=== PATIENT | female | born 1995 | race Two or more races ===

== ENCOUNTER 2022-06-20 15:23 | Emergency (ER) | payer OTHER, SELFPAY ==
--- NOTE | 2022-06-20 15:29 | ED.GENADULT ---
HPI - General Adult General Chief complaint: Asthma Stated complaint: SOB/Asthma Time Seen by Provider: 06/20/22 15:36 Source: patient, RN notes reviewed and old records reviewed Mode of arrival: ambulatory Limitations: no limitations History of Present Illness HPI narrative: 26-year-old female presents to the [facility] with shortness of breath and wheezing for about a week. States she has not had her inhaler for while. Denies any chest pain. Denies fevers or any other symptoms. Onset (ago): week(s) (1) Related Data Home Medications Medication Instructions Recorded Confirmed medroxyprogesterone 150 mg/mL mg IM 06/20/22 intramuscular syringe Allergies Allergy/AdvReac Type Severity Reaction Status Date / Time levonorgestrel-ethinyl Allergy Mild Unknown Verified 06/20/22 15:36 estradiol Review of Systems Review of Systems: All systems reviewed & are unremarkable except as noted in HPI and below Constitutional: Constitutional: Reports no additional constitutional complaints Eyes: Eyes: Reports no additional eye complaints ENT: Reports system reviewed and no additional complaints, except as documented Cardiovascular: Cardiovascular: Reports no additional cardiovascular complaints, Denies chest pain and Denies dyspnea Respiratory: Respiratory: Reports as per HPI, Denies chest congestion, Reports cough, Denies dyspnea and Reports wheezing Gastrointestinal: Gastrointestinal: Reports no additional gastrointestinal complaints, Denies abdominal pain, Denies nausea and Denies vomiting Musculoskeletal: Musculoskeletal: Reports no additional musculoskeletal complaints Integumentary/Breasts: Skin/Breast: Reports system reviewed and no additional complaints, except as docu Neurologic: Reports system reviewed and no additional complaints, except as documented Psychiatric: Psychiatric: Reports no additional psychiatric complaints Allergic/Immunologic: Allergic/Immunologic: Reports no additional allergic/immunologic complaints PMFSH Past Medical History Medical History (Updated 06/21/22 @ 17:11 by Sally Liu, ANGELA) Asthma Comments At the time of my signature, I reviewed and agree with the nursing past medical, surgical, social, and family history. There is no relevant family history pertinent to the patient complaint. Exam Const: General: cooperative, healthy appearing, comfortable, no acute distress, well developed, alert and well nourished Nutritional Appearance: well nourished Orientation/consciousness: patient oriented x3 Limitations: no limitations HENMT: Head: normal to inspection Ears: hearing grossly normal bilaterally and external ears normal Face/Nose/Sinus: Normal external nose present, Normal nares present, Normal nasal mucous membranes and turbinates present and normal facial exam Face and sinus: normal facial exam Mouth: Yes Normal oral and palatal mucosa present, Yes lip normal and Yes moist mucous membranes Eyes: General: appearance normal, both eyes and all related structures Alignment and Position: alignment normal Periorbital: periorbital findings normal Conjunctivae: conjunctivae normal Pupils: Equal, round and reactive pupils present EOM: EOMs intact bilaterally Neck: Neck: normal visual inspection, full ROM, no lymphadenopathy and no meningeal signs Chest: Chest palpation & inspection: normal inspection of the chest Resp: Effort & Inspection: normal respiratory effort and able to speak in complete sentences Auscultation: clear to auscultation bilaterally, no crackles, no rales, no rhonchi and wheezes expiratory wheezes, inspiratory wheezes and right lower Cardio: Rate: regular rate Rhythm: regular rhythm Back/Spine/Pelvis: Cervical Spine: cervical ROM normal Thoracic/Lumbar Spine: No thoracic spinal tenderness Skin: General skin exam: normal color and no rashes or lesions noted Lesions: no lesions Rashes: no rashes Wounds: no wounds Neuro: General: patient orien
[2022-06-20 15:35] VITALS: BP 146/93; PULSE 75; RESP 16; TEMP 36.5; O2SAT 97
[2022-06-20 15:36] VITALS: BP 146/93; PULSE 75; RESP 16; TEMP 36.5; O2SAT 97
== END 2022-06-20 16:00 | disposition home or self-care (01) ==
PROVIDERS: Emergency Provider Nurse Practitioner; PCP Internal Medicine
DX: J45.909 Unspecified asthma, uncomplicated (principal)
CPT/HCPCS: 99213; G0463

== ENCOUNTER 2022-12-05 17:54 | Emergency (ER) | payer OTHER, SELFPAY ==
[2022-12-05 18:08] VITALS: BP 151/92; PULSE 65; RESP 16; TEMP 36.7; O2SAT 97
--- NOTE | 2022-12-05 18:35 | ED.EAR ---
HPI - Ear Problem General Chief complaint: Ear Stated complaint: Left Ear Irritation History of Present Illness HPI Narrative: Pt is a 27 y/o female, presents to with 5 day hx of URI symptoms followed by left ear pain and muffled hearing without associated cough, fevers, otorrhea or trauma. She has taken OTC cold medications without relief. She denies any other associated symptoms or modifying factors. She is not . Related Data Home Medications Medication Instructions Recorded Confirmed medroxyprogesterone 150 mg/mL 150 mg IM DIRECTED 06/20/22 12/05/22 intramuscular syringe Allergies Allergy/AdvReac Type Severity Reaction Status Date / Time levonorgestrel-ethinyl Allergy Mild Unknown Verified 12/05/22 18:03 estradiol Review of Systems ENT: Reports system reviewed and no additional complaints, except as documented and Reports as per [facility] Past Medical History Medical History Asthma Exam Const: General: healthy appearing, no acute distress and alert Nutritional Appearance: well nourished Orientation/consciousness: patient oriented x3 Limitations: no limitations HENMT: Head: normal to inspection Ears: TM abnormal bulging on the left, erythematous on the left, with fluid behind the TM (purulent fluid effusion on left, serous effusion on right) and with loss of landmarks (left TM bony land travis loss) on the left Face and sinus: normal facial exam and sinus tenderness maxillary Mouth: Yes Normal oral and palatal mucosa present, Yes lip normal and Yes moist mucous membranes Other: TM's intact bilaterally Eyes: Conjunctivae: conjunctivae normal Pupils: Equal, round and reactive pupils present EOM: EOMs intact bilaterally Neck: Neck: normal visual inspection, no lymphadenopathy and no meningeal signs Chest: Chest palpation & inspection: normal inspection of the chest Resp: Effort & Inspection: normal respiratory effort Auscultation: clear to auscultation bilaterally Cardio: Rate: regular rate Rhythm: regular rhythm Back/Spine/Pelvis: Back: no CVA tenderness Skin: General skin exam: normal color Rashes: no rashes Wounds: no wounds Neuro: General: patient oriented x3, moves all extremities, no meningeal signs, no focal motor deficits and CN's II-XI intact bilaterally Cranial nerves: Yes Nystagmus not present Speech: normal speech Gait exam (Neuro): Normal gait present Extrem: General: normal to inspection Course Course Emergency Course: plan to treat for left AOM, sinusitis, FU with PCP stressed in 3 days if symptoms are not improving. Pt is agreeable with plan of care. Level of Care: Express Care Visit ([id number]) Vital Signs Vital signs: Vital Signs Temperature 36.7 C 12/05/22 18:08 Pulse Rate 65 12/05/22 18:08 Respiratory Rate 16 12/05/22 18:08 Blood Pressure 151/92 H 12/05/22 18:08 Pulse Oximetry 97 12/05/22 18:08 Oxygen Delivery Room Air 12/05/22 18:08 Temperature 36.7 C 12/05/22 18:08 Pulse Rate 65 12/05/22 18:08 Respiratory Rate 16 12/05/22 18:08 Blood Pressure 151/92 H 12/05/22 18:08 Pulse Oximetry 97 12/05/22 18:08 Oxygen Delivery Room Air 12/05/22 18:08 Medical Decision Making MDM Narrative Medical decision making narrative: Augmentin, OTC Flonase, Zyrtec, Sudafed as directed, FU with PCP in 3 days if symptoms are not improving. Differential Diagnosis Differential Diagnosis: AOM, OTE, serous OM, sinusitis Vital Signs Vital Signs: Vital Signs Temperature 36.7 C 12/05/22 18:08 Pulse Rate 65 12/05/22 18:08 Respiratory Rate 16 12/05/22 18:08 Blood Pressure 151/92 H 12/05/22 18:08 Pulse Oximetry 97 12/05/22 18:08 Oxygen Delivery Room Air 12/05/22 18:08 Temperature 36.7 C 12/05/22 18:08 Pulse Rate 65 12/05/22 18:08 Respiratory Rate 16 12/05/22 18:08 Blood Pressure 151/92 H 12/05/22 18:08 Pulse Oximetry 97
== END 2022-12-05 18:45 | disposition home or self-care (01) ==
PROVIDERS: Emergency Provider Nurse Practitioner Family; PCP Internal Medicine
DX: H66.002 Acute suppurative otitis media without spontaneous rupture of ear drum, left ear (principal); J01.00 Acute maxillary sinusitis, unspecified
CPT/HCPCS: 99213; G0463

== ENCOUNTER 2024-06-24 18:18 | Emergency (ER) | payer BC, SELFPAY ==
--- NOTE | ~2024-06-24 | XR_ITS ---
CHEST RADIOGRAPH, PA AND LATERAL CLINICAL HISTORY: wheezing and cough, sob . COMPARISON: None available TECHNIQUE: PA and lateral views of the chest. FINDINGS The cardiomediastinal silhouette is unremarkable. The lungs are clear. Visualized osseous structures and soft tissues are unremarkable. IMPRESSION: No focal infiltrate or effusion. Reviewed, dictated and finalized at location A.
[2024-06-24 18:26] VITALS: BP 147/81; PULSE 72; RESP 18; TEMP 36.8; O2SAT 98
[2024-06-24] MEDS: IPRATROPIUM 0.5 MG/ALBUTEROL SULFATE 2.5 MG AMPUL.NEB 3 ML INHALATION (18:52)
--- NOTE | 2024-06-24 18:52 | ED.URI ---
HPI - URI/Sore Throat General Chief Complaint: Upper Respiratory Infection Stated Complaint: Cough/SOB Time Seen by Provider: 06/24/24 18:45 Source: patient and RN notes reviewed Mode of arrival: ambulatory Limitations: no limitations History of Present Illness HPI Narrative: 28-year-old female presents Express Care complaining of cough and shortness of breath for approximately 6 days. Patient reported a dry hacking cough reports shortness breath with exertion. Patient also reports she feels ?wheezy? at times. Patient says she normally gets bronchitis around this time. Patient said she might have had a history of asthma but currently is not on any treatment or has a rescue inhaler at home. Patient denies any fevers, sore throat, congestion, ear pain, chest pain, body aches, chills. Patient denies coughing up any sputum. Patient says she was a former E cigarette vaper and quit back in March of this year. Patient is on control with an IUD which is progesterone based. Related Data Home Medications ?Medication ?Instructions ?Recorded ?Confirmed ?Last Taken ?Type sertraline 50 mg tablet 50 mg PO DAILY 11/20/23 03/11/24 Unknown History levonorgestrel 17.5 mcg/24 hr (up 1 device intrauterine ONCE 03/11/24 03/11/24 Unknown History to 5 yrs) 19.5mg intrauterine device (Kyleena) acetazolamide 500 mg mg PO 06/24/24 Unknown History capsule,extended release Allergies Allergy/AdvReac Type Severity Reaction Status Date / Time No Known Allergies Allergy Verified 06/24/24 18:21 Review of Systems Review of Systems: CONSTITUTIONAL: Denies fever, chills, or sweats. EYES: Denies visual changes, redness, or discharge. ENT: Denies rhinorrhea, congestion, sore throat, or otalgia. CARDIOVASCULAR: Denies chest pain, palpitations, dizziness, lightheadedness, syncope, or edema. RESPIRATORY: Positive for cough, wheezing, dyspnea with exertion. GASTROINTESTINAL: Denies abdominal pain, nausea, vomiting, or diarrhea. GENITOURINARY: Denies dysuria or hematuria. SKIN: Denies rash or itching. MUSCULOSKELETAL: Denies back pain, joint pain, or myalgia. NEUROLOGIC: Denies headache, numbness, or weakness. PSYCHIATRIC: Denies anxiety or depression. All other systems reviewed are negative, except as documented in HPI. [facility] Past Medical History Medical History Asthma Family History Family History Sibling Diabetes mellitus Grandparent Diabetes mellitus Father Hypertension Social History Social History Smoking status: Never smoker Alcohol intake: never Substance use: never Comments At the time of my signature, I reviewed and agree with the nursing past medical, surgical, social, and family history. There is no relevant family history pertinent to the patient complaint. Exam Narrative: GENERAL: This is a well-nourished, well-developed adult, in no apparent distress. They are non ill-appearing, nontoxic appearing. HEAD: normocephalic, atraumatic. EYES: Sclera clear/white. Conjunctivae normal bilaterally. Vision is grossly intact. Extraocular movements intact EARS: External ears normal, auditory canals clear and without drainage, TMs normal without perforation. Hearing grossly intact. NOSE: External nose normal with no obvious nasal discharge, nares without redness, no rhinorrhea. THROAT: Mucous membranes moist, posterior pharynx clear. NECK: Neck supple, non-tender without lymphadenopathy, masses or thyromegaly. CARDIOVASCULAR: Regular rate and rhythm without murmurs, gallops, or rubs. RESPIRATORY: Inspiratory wheezing heard throughout the lungs bilaterally. Respiratory efforts nonlabored, no tachypnea, no accessory muscle use, no retractions. Apparent respiratory distress. Patient is able to speak in full sentences. SKIN: warm, Dry, intact with no suspicious lesions or rash, good texture and turgor. NEURO: awake, alert, and oriented to person, place and time. There were no obvious focal neurologic abnormalities. EXTREMITIES: No joint tenderness, effusion, or edema noted. Course Course Emergency Course: After receiving DuoNeb treatment, patient's symptoms and wheezing significantly improved. Minimal upper airway wheezing upon auscultation. Improved aeration throughout the lungs. Patient no longer feels short of breath. Portions of this record may have been created with voice recognition software Level of Care: Express Care Visit Vital Signs Vital signs: Vital Signs Temperature 98.3 F 06/24/24 18:26 Pulse Rate 72 06/24/24 18:26 Respiratory Rate 18 06/24/24 18:26 Blood Pressure 147/81 H 06/24/24 18:26 Pulse Oximetry 98 06/24/24 18:26 Oxygen Delivery Room Air 06/24/24 18:26 Temperature 98.3 F 06/24/24 18:26 Pulse Rate 72 06/24/24 18:26 Respiratory Rate 18 06/24/24 18:26 Blood Pressure 147/81 H 06/24/24 18:26 Pulse Oximetry 98 06/24/24 18:26 Oxygen Delivery Room Air 06/24/24 18:26 Reviewed MDM - URI/Sore Throat MDM Narrative Medical decision making narrative: Chest x-ray negative for any acute findings. Flu and COVID swabs were negative. Patient's wheezing significantly improved with DuoNeb. Patient no longer feels short of breath or wheezy. Minimal wheezing heard on auscultation post DuoNeb treatment with improved aeration throughout lungs. Patient is in no apparent respiratory distress, she is able to speak in full sentences. Patient was given a dose of Solu-Medrol prior to discharge. I will prescribe her prednisone and albuterol for her symptoms. She does not have a nebulizer at home. It is likely that the patient had an asthma exacerbation. She has had a history of asthma has no longer been on treatment. Recommend close follow-up with PCP. Anticipatory guidance given. Strict ED return precautions discussed. Patient is stable for outpatient follow-up. Differential Diagnosis Differential diagnosis: Likely bronchitis and other (Asthma exacerbation, pneumonia) Lab Data Attestation: I reviewed the patient's lab results. Labs: Lab Results 06/24/24 Range/Units 18:30 POC Influenza A Ag Negative (Negative) POC Influenza B Ag Negative (Negative) POC SARS CoV-2 Ag Negative (Negative) Imaging Data Radiologist's impression: ITS Impressions Chest X-Ray 06/24/24 19:14 IMPRESSION: No focal infiltrate or effusion. Critical Care Time Critical Care Time Critical Care Time: No Discharge Plan Discharge Clinical Impression: Asthma Qualifiers: Asthma severity: moderate Asthma persistence: unspecified Asthma complication type: with acute exacerbation Qualified Code(s): J45.901 - Unspecified asthma with (acute) exacerbation Patient Disposition: Home Condition: Stable Instructions: Asthma (ED) Additional Instructions: Your COVID and flu were negative. Your chest x-ray was clear without any evidence of pneumonia or any other findings. Your given a nebulizer treatment today along with a steroid shot. Please take the prednisone at home as directed. Please take a morning with food. Please use the rescue inhaler as needed for any shortness of breath or wheezing. Please follow-up with your primary care provider for further evaluation and management of her asthma symptoms. If he develops worsening shortness of breath, wheezing, unable to speak in full sentences, no relief after use inhaler, or any other concerns please go to the ER immediately. Patient Language: Welsh Prescriptions: New prednisone 20 mg tablet 40 mg PO DAILY 5 Days Qty: 10 0RF albuterol sulfate [Ventolin HFA] 90 mcg/actuation HFA aerosol inhaler 2 puff inhalation QID Qty: 8.5 1RF No Action acetazolamide 500 mg capsule, extended release PO sertraline 50 mg tablet 50 mg PO DAILY Kyleena 17.5 mcg/24 hr (5 yrs) 19.5 mg intrauterine device 1 device intrauterine ONCE Rx Instructions: as a single dose Follow-up/Referrals: Mando,Chasity Meyers MD [Primary Care Provider] - Time of Disposition: 19:30
[2024-06-24 19:01] LABS: EDCOVIDSCREEN Negative (Negative); EDINFLUASCREEN Negative (Negative); EDINFLUBSCREEN Negative (Negative)
[2024-06-24] MEDS: methylPREDNISolone SOD SUCC 125 MG VIAL IM (19:31)
== END 2024-06-24 19:45 | disposition home or self-care (01) ==
PROVIDERS: PCP Internal Medicine
DX: J45.901 Unspecified asthma with (acute) exacerbation (principal); Z20.822 Contact with and (suspected) exposure to COVID-19; Z97.5 Presence of (intrauterine) contraceptive device
CPT/HCPCS: 71046; 87426; 87804; 94640; 96372; 99213; G0463; J2919